=== PATIENT | male | born 1935 | race Asian ===

== ENCOUNTER 2017-11-09 11:09 | Inpatient (IN) | payer MEDICARE, OTHER ==
[~2017-11-09] VITALS: Ht 165.1 cm; Wt 58.7 kg
[2017-11-09] MEDS ORDERED: SODIUM CHLORIDE 0.9% 1,000 ML IV ONE (11:15)
[2017-11-09 11:20] LABS: ABG A-A DIFF O2 294.5 mmHg (10-20.0); ABG BASE EXCESS -27.7 mmol/L (-2.0-3.0); ABG CARBOXYHEMOGLOBIN 1.1 % (0.0-1.5); ABG METHEMOGLOBIN 0.7 % (0.0-1.5); ABG OXYGEN CONTENT 20.9 mL/dL (15.0-23.0); ABG OXYGEN SATURATION 99.9 % (95.0-98.0); ABG OXYHEMOGLOBIN 98.1 % (94.0-100.0); ABG TOTAL HEMOGLOBIN 14.4 G/dL (12.0-18.0); PO2, ARTERIAL BG 405.7 mmHg (71.0-79.0); SOURCE, BLOOD GAS ARTERIAL; TEMPERATURE, FAHRENHEIT, BG 98.6 FAHREN (96.0-98.6)
[2017-11-09 11:21] LABS: ABG HCO3 7.1 mmol/L (22.0-26.0); ABG PCO2 13 mmHg (35-45); O2 DEVICE,BLOOD GAS BIPAP (ROOM AIR); SITE, BLOOD GAS LFT RADIAL
[2017-11-09] MEDS ORDERED: NOREPINEPHRINE 4 MG/D5%-WATER 0 ML IV ONE (11:36)
[2017-11-09] MEDS ORDERED: MACR100 PO (11:38)
[2017-11-09] MEDS ORDERED: HYDR-309 PO (11:38)
[2017-11-09] MEDS ORDERED: CETI-290 PO (11:38)
[2017-11-09] MEDS ORDERED: CITA10TA68 PO (11:38)
[2017-11-09] MEDS ORDERED: MULT-248 PO (11:38)
[2017-11-09] MEDS ORDERED: MEMA28CA5 PO (11:38)
[2017-11-09] MEDS ORDERED: TRAM50TA4 PO (11:38)
[2017-11-09] MEDS ORDERED: ENOX30DI5 SQ (11:38)
[2017-11-09] MEDS ORDERED: PHENYLEPHRINE HCL 10 MG/ML 5 ML VIAL ONE (11:40)
[2017-11-09 12:21] LABS: HEMOGLOBIN 12.5 g/dL (13.5-17.5); MEAN CORPUSCULAR HEMOGLOBIN 32.1 pg (26.0-34.0); MEAN CORPUSCULAR HGB CONC 30.6 G/dL (31.0-37.0); MEAN CORPUSCULAR VOLUME 105 fL (80-100); PLATELET COUNT (AUTO) 210 K/uL (150-450); RED BLOOD CELL COUNT(AUTO) 3.91 MIL/uL (4.50-5.90); RED CELL DISTRIBUTION WIDTH 15.5 % (11.5-14.5)
[2017-11-09] MEDS ORDERED: CefTRIAXone SODIUM 1 GM in DEXTROSE 5%-WATER 10 ML IV ONE (12:30)
[2017-11-09] MEDS ORDERED: SODIUM BICARBONATE [ADULT] 8.4% 50 MEQ/50 ML SYRINGE IVP ONE ×3 (12:30→16:45)
[2017-11-09 12:33] LABS: INR 1.2 (0.9-1.1)
[2017-11-09 12:39] LABS: ABG CARBOXYHEMOGLOBIN 0.2 % (0.0-1.5); ABG OXYGEN SATURATION 99.8 % (95.0-98.0); SOURCE, BLOOD GAS ARTERIAL; TEMPERATURE, FAHRENHEIT, BG 100.5 FAHREN (96.0-98.6)
[2017-11-09 12:42] LABS: ABG A-A DIFF O2 174.5 mmHg (10-20.0); ABG HCO3 13.1 mmol/L (22.0-26.0); ABG METHEMOGLOBIN 0.4 % (0.0-1.5); ABG OXYGEN CONTENT 17.1 mL/dL (15.0-23.0); ABG OXYHEMOGLOBIN 99.2 % (94.0-100.0); ABG PCO2 36 mmHg (35-45); ABG TOTAL HEMOGLOBIN 11.3 G/dL (12.0-18.0); PO2, ARTERIAL BG 499.7 mmHg (71.0-79.0)
[2017-11-09] MEDS ORDERED: DILTIAZEM HCL 5 MG/ML 5 ML VIAL IVP ONE (12:45)
[2017-11-09 12:46] LABS: ABG PH 7.163 (7.35-7.450); O2 DEVICE,BLOOD GAS VENTILATOR (ROOM AIR); SITE, BLOOD GAS RT RADIAL
[2017-11-09 12:47] LABS: PEEP,BG 5 cm H2O; VT, ABG 500 ml
[2017-11-09 12:47] LABS: LACTIC ACID 12.3 mmol/L (0.4-2.0)
[2017-11-09 12:53] LABS: ALANINE AMINOTRANSFERASE 32 U/L (12-78); ALBUMIN 1.9 g/dL (3.4-5.0); ALKALINE PHOSPHATASE 117 U/L (46-116); ANION GAP 25 mmol/L (8-16); ASPARTATE AMINOTRANSFERASE 51 U/L (15-37); BILIRUBIN,TOTAL 0.3 mg/dL (0.1-1.0); CHLORIDE 105 mmol/L (98-107); CKMB RELATIVE INDEX 1.5 % (0.0-4.0); CREATINE KINASE MB 12.2 ng/mL (0-5); CREATINE KINASE, TOTAL 815 U/L (39-308); CREATININE 5.61 mg/dL (0.60-1.30); GLOMERULAR FILTR. RATE CALC 10 mL/min (>60); GLUCOSE,RANDOM 329 mg/dL (70-110); POTASSIUM 5.2 mmol/L (3.5-5.1); SODIUM SERUM 139 mmol/L (136-145); UREA NITROGEN, BLOOD 72 mg/dL (7-18)
[2017-11-09 12:56] LABS: CARBON DIOXIDE 9 mmol/L (22-29)
[2017-11-09 12:57] LABS: B-TYPE NATRIURETIC PEPTIDE 281 pg/mL (0-100)
[2017-11-09 13:09] LABS: BAND NEUTROPHILS % (MANUAL) 8 % (0-5); EOSINOPHILS % (MANUAL) 1 % (1-6); LYMPHOCYTES % (MANUAL) 31 % (22-44); METAMYELOCYTES % 2 % (0-0); MONOCYTES % (MANUAL) 5 % (2-9); MYELOCYTES % 3 % (0-0); SEGMENTED NEUTROPHILS % 50 % (40-70)
[2017-11-09 13:16] LABS: WBC MORPHOLOGY TOXIC GRANULATION
[2017-11-09 13:18] LABS: PLATELET MORPHOLOGY COMMENT GIANT PLTS
[2017-11-09] MEDS ORDERED: VANCOMYCIN HCL 125 MG/2.5 ML SOLUTION ORAL.SYG NG ONE (13:30)
[2017-11-09] MEDS ORDERED: MetroNIDAZOLE 500 MG/NACL 100 ML IV ONE (13:30)
[2017-11-09] MEDS ORDERED: ACETAMINOPHEN 325 MG TABLET PO PRN (13:45)
[2017-11-09] MEDS ORDERED: 0.9% SODIUM CHLORIDE 10 ML SYRINGE IVP PRN (13:45)
[2017-11-09] MEDS ORDERED: *CLINICAL-CEFEPIME DOSING CLINICAL ONE (14:00)
[2017-11-09] MEDS ORDERED: CEFEPIME HCL 1 GM in DEXTROSE 5%-WATER 10 ML IV ONE (14:15)
[2017-11-09] MEDS ORDERED: VANCOMYCIN HCL 1 GM/D5% WATER 200 ML IV ONE (14:15)
[2017-11-09] MEDS ORDERED: SODIUM BICARBONATE 150 MEQ in DEXTROSE 5%-WATER 1,000 ML IV ONE (15:45)
[2017-11-09] MEDS: RINGERS SOLUTION,LACTATED 1,000 ML IV SCH (16:35)
[2017-11-09] MEDS ORDERED: VASOPRESSIN 40 UNITS in DEXTROSE 5%-WATER 98 ML IV PRN (16:36)
[2017-11-09] MEDS ORDERED: PHENYLEPHRINE 200 MG/D5%-WATER 250 ML IV PRN (16:36)
[2017-11-09] MEDS ORDERED: NOREPINEPHRINE 4 MG/D5%-WATER 250 ML IV ONE (16:37)
[2017-11-09] MEDS ORDERED: ALBUMIN HUMAN 5%-12.5GM/250ML 250 ML IV ONE (16:45)
[2017-11-09 17:03] LABS: ABG A-A DIFF O2 120.8 mmHg (10-20.0); ABG BASE EXCESS -12.6 mmol/L (-2.0-3.0); ABG CARBOXYHEMOGLOBIN 0.6 % (0.0-1.5); ABG HCO3 15.5 mmol/L (22.0-26.0); ABG METHEMOGLOBIN 0.4 % (0.0-1.5); ABG OXYGEN CONTENT 14.8 mL/dL (15.0-23.0); ABG OXYGEN SATURATION 99.4 % (95.0-98.0); ABG OXYHEMOGLOBIN 98.4 % (94.0-100.0); ABG PCO2 28 mmHg (35-45); ABG PH 7.308 (7.35-7.450); ABG TOTAL HEMOGLOBIN 10.2 G/dL (12.0-18.0); O2 DEVICE,BLOOD GAS VENTILATOR (ROOM AIR); PEEP,BG 5 cm H2O; PO2, ARTERIAL BG 276.5 mmHg (71.0-79.0); SITE, BLOOD GAS ARTERIAL LINE; SOURCE, BLOOD GAS ARTERIAL; TEMPERATURE, FAHRENHEIT, BG 98.5 FAHREN (96.0-98.6); VT, ABG 500 ml
[2017-11-09] MEDS ORDERED: VANCOMYCIN HCL 1 GM/D5% WATER 200 ML IV PRN (17:15)
[2017-11-09 17:32] LABS: CALCIUM, TOTAL 6.6 mg/dL (8.8-10.5); CREATININE 5.31 mg/dL (0.60-1.30); POTASSIUM 4.8 mmol/L (3.5-5.1)
[2017-11-09] MEDS ORDERED: PROPOFOL 1000 MG/ISO-OSM 100 ML IV ONE (18:28)
[2017-11-09 20:00] VITALS: BP 132/43
[2017-11-09] MEDS ORDERED: PROPOFOL 1000 MG/ISO-OSM 100 ML IV PRN (23:02)
[2017-11-10] VITALS: BP 132/32
[2017-11-10] MEDS: MetroNIDAZOLE 500 MG/NACL 100 ML IV SCH ×2 (00:34→08:54)
[2017-11-10] MEDS: VANCOMYCIN HCL 500 MG/10 ML SOLUTION ORAL.SYG PO SCH ×2 (00:34→05:37)
[2017-11-10] MEDS ORDERED: SODIUM CHLORIDE 0.9% 250 ML IV ONE (00:38)
[2017-11-10 04:00] VITALS: BP 84/20
[2017-11-10 04:52] LABS: HEMATOCRIT 36.1 % (41-53); HEMOGLOBIN 11.7 g/dL (13.5-17.5); MEAN CORPUSCULAR HEMOGLOBIN 32.2 pg (26.0-34.0); MEAN CORPUSCULAR HGB CONC 32.4 G/dL (31.0-37.0); MEAN CORPUSCULAR VOLUME 99 fL (80-100); PLATELET COUNT (AUTO) 83 K/uL (150-450); RED BLOOD CELL COUNT(AUTO) 3.63 MIL/uL (4.50-5.90); RED CELL DISTRIBUTION WIDTH 14.3 % (11.5-14.5)
[2017-11-10 04:59] LABS: CALCIUM, TOTAL 6.5 mg/dL (8.8-10.5); CREATININE 5.73 mg/dL (0.60-1.30); POTASSIUM 5.1 mmol/L (3.5-5.1)
[2017-11-10 05:27] LABS: BAND NEUTROPHILS % (MANUAL) 25 % (0-5); LYMPHOCYTES % (MANUAL) 12 % (22-44); METAMYELOCYTES % 6 % (0-0); MONOCYTES % (MANUAL) 2 % (2-9); MYELOCYTES % 2 % (0-0); SEGMENTED NEUTROPHILS % 53 % (40-70)
[2017-11-10] MEDS: RINGERS SOLUTION,LACTATED 1,000 ML IV SCH (05:37)
[2017-11-10] MEDS ORDERED: NOREPINEPHRINE 4 MG/D5%-WATER 250 ML IV ONE (06:41)
[2017-11-10] MEDS ORDERED: NOREPINEPHRINE 4 MG/D5%-WATER 250 ML IV PRN (06:48)
[2017-11-10 07:05] LABS: ABG A-A DIFF O2 77.7 mmHg (10-20.0); ABG BASE EXCESS -22.2 mmol/L (-2.0-3.0); ABG CARBOXYHEMOGLOBIN 0.3 % (0.0-1.5); ABG METHEMOGLOBIN 0.1 % (0.0-1.5); ABG OXYGEN CONTENT 16.3 mL/dL (15.0-23.0); ABG OXYGEN SATURATION 98.5 % (95.0-98.0); ABG OXYHEMOGLOBIN 98.1 % (94.0-100.0); ABG PH 7.165 (7.35-7.450); ABG TOTAL HEMOGLOBIN 11.6 G/dL (12.0-18.0); PO2, ARTERIAL BG 150.8 mmHg (71.0-79.0); SOURCE, BLOOD GAS ARTERIAL; TEMPERATURE, FAHRENHEIT, BG 98.5 FAHREN (96.0-98.6)
[2017-11-10 07:06] LABS: ABG HCO3 9.6 mmol/L (22.0-26.0); ABG PCO2 18 mmHg (35-45); O2 DEVICE,BLOOD GAS VENTILATOR (ROOM AIR); SITE, BLOOD GAS ARTERIAL LINE; VT, ABG 500 ml
[2017-11-10 07:07] LABS: PEEP,BG 5 cm H2O
[2017-11-10 08:00] VITALS: BP 113/33
[2017-11-10] MEDS ORDERED: SODIUM CHLORIDE 0.9% 2,000 ML IV ONE (08:11)
[2017-11-10] MEDS ORDERED: POTASSIUM CHLORIDE 20 MEQ in NXSTAGE RFP-402 K0/CA3 5,000 ML IRRIG PRN (08:30)
[2017-11-10] MEDS ORDERED: CEFEPIME HCL 2 GM in DEXTROSE 5%-WATER 20 ML IV SCH (09:00)
[2017-11-10] MEDS ORDERED: DOPamine HCL 400 MG/D5%-WATER 250 ML IV ONE (09:16)
[2017-11-10] MEDS ORDERED: SODIUM BICARBONATE 150 MEQ in SODIUM CHLORIDE 0.9% 1,000 ML IV SCH (09:45)
[2017-11-10] MEDS ORDERED: DOPamine HCL 400 MG/D5%-WATER 250 ML IV PRN (09:52)
[2017-11-10] MEDS ORDERED: SODIUM BICARBONATE 150 MEQ in DEXTROSE 5%-WATER 1,000 ML IV SCH (10:00)
[2017-11-10] MEDS ORDERED: SODIUM CHLORIDE 0.9% 1,000 ML IV ONE ×2 (10:13→11:01)
[2017-11-10 11:41] LABS: CREATININE 4.99 mg/dL (0.60-1.30); MAGNESIUM 2.3 mg/dL (1.80-2.40); POTASSIUM 5.8 mmol/L (3.5-5.1)
[2017-11-10 11:55] LABS: PHOSPHORUS 11.3 mg/dL (2.5-4.9)
[2017-11-10] MEDS ORDERED: MORPHINE SULFATE 100 MG/NS/PF 100 ML IV PRN (11:59)
[2017-11-10 12:00] VITALS: BP 81/25
[2017-11-10] MEDS ORDERED: DiphenhydrAMINE HCL 50 MG/ML VIAL IVP PRN (12:00)
[2017-11-10] MEDS ORDERED: VANCOMYCIN HCL 500 MG in DEXTROSE 5%-WATER 100 ML IV ONE (12:00)
[2017-11-10] MEDS ORDERED: ONDANSETRON HCL 4 MG/2 ML VIAL IVP PRN (12:00)
[2017-11-10] MEDS ORDERED: SODIUM BICARBONATE [ADULT] 8.4% 50 MEQ/50 ML SYRINGE IVP ONE (15:04)
[2017-11-10] MEDS ORDERED: ETOMIDATE 2 MG/ML 10 ML VIAL IVP ONE (15:04)
== END 2017-11-10 15:05 | disposition expired | DRG 871 ==
LOC: EMS 11:10 → ICU 14:50
PROVIDERS: ADMIT Internal Medicine; ATTEND Internal Medicine
PROC: 5A1945Z Respiratory Ventilation, 24-96 Consecutive Hours (ICD-10-PCS; principal; 2017-11-09)
PROC: 0BH17EZ Insertion of Endotracheal Airway into Trachea, Via Natural or Artificial Opening (ICD-10-PCS; 2017-11-09)
PROC: 5A09357 Assistance with Respiratory Ventilation, Less than 24 Consecutive Hours, Continuous Positive Airway Pressure (ICD-10-PCS; 2017-11-09)
PROC: 02HV33Z Insertion of Infusion Device into Superior Vena Cava, Percutaneous Approach (ICD-10-PCS; 2017-11-09)
PROC: B548ZZA Ultrasonography of Superior Vena Cava, Guidance (ICD-10-PCS; 2017-11-09)
PROC: 04HY32Z Insertion of Monitoring Device into Lower Artery, Percutaneous Approach (ICD-10-PCS; 2017-11-09)
PROC: 4A133B1 Monitoring of Arterial Pressure, Peripheral, Percutaneous Approach (ICD-10-PCS; 2017-11-09)
PROC: 4A133J1 Monitoring of Arterial Pulse, Peripheral, Percutaneous Approach (ICD-10-PCS; 2017-11-09)
PROC: 06HM33Z Insertion of Infusion Device into Right Femoral Vein, Percutaneous Approach (ICD-10-PCS; 2017-11-09)
DX: A41.9 Sepsis, unspecified organism (principal); J96.01 Acute respiratory failure with hypoxia; R65.21 Severe sepsis with septic shock; N17.0 Acute kidney failure with tubular necrosis; E87.0 Hyperosmolality and hypernatremia; A04.72 Enterocolitis due to Clostridium difficile, not specified as recurrent; M62.82 Rhabdomyolysis; E78.5 Hyperlipidemia, unspecified; F03.90 Unspecified dementia, unspecified severity, without behavioral disturbance, psychotic disturbance, mood disturbance, and anxiety; I12.9 Hypertensive chronic kidney disease with stage 1 through stage 4 chronic kidney disease, or unspecified chronic kidney disease; I48.91 Unspecified atrial fibrillation; K21.9 Gastro-esophageal reflux disease without esophagitis; N18.9 Chronic kidney disease, unspecified; F32.9 Major depressive disorder, single episode, unspecified; Z51.5 Encounter for palliative care; Z66 Do not resuscitate; Z78.1 Physical restraint status; Z88.8 Allergy status to other drugs, medicaments and biological substances; Z79.899 Other long term (current) drug therapy; Z82.49 Family history of ischemic heart disease and other diseases of the circulatory system; Z83.3 Family history of diabetes mellitus
CPT/HCPCS: 31500; 36556; 70450; 71250; 72192; 74150; 82805; 83605; 83735; 84100; 84145; 87040; 87070; 87081; 87106; 87205; 87340; 93005; 94002; 94003; 94660; 96365; 96366; 96368; 96375; 99291; J0692; J0696; J1265; J2270; J2370; J2704; J3370; J3480; J3490; J7030; J7050; J7060; J7120; P9041